=== PATIENT | female | born 1970 | race Caucasian/White ===

== ENCOUNTER 2024-01-20 09:15 | Day surgery (SDC) | payer OTHER ==
[2024-01-17 08:09] VITALS: BMI 25.4
[2024-01-20 10:24] VITALS: TEMP 97
[2024-01-20 10:51] VITALS: RESP 14
[2024-01-20 10:53] VITALS: BP 133/81; PULSE 68
== END 2024-01-20 10:55 | disposition home or self-care (01) ==
LOC: JASU-ENDO 09:15
PROVIDERS: ATTEND Internal Medicine Gastroenterology
PROC: 0DB68ZX Excision of Stomach, Via Natural or Artificial Opening Endoscopic, Diagnostic (ICD-10-PCS; 2024-01-20)
PROC: 0DB78ZX Excision of Stomach, Pylorus, Via Natural or Artificial Opening Endoscopic, Diagnostic (ICD-10-PCS; 2024-01-20)
PROC: 0DJD8ZZ Inspection of Lower Intestinal Tract, Via Natural or Artificial Opening Endoscopic (ICD-10-PCS; principal; 2024-01-20 10:00)
DX: Z12.11 Encounter for screening for malignant neoplasm of colon (principal); K29.50 Unspecified chronic gastritis without bleeding; K31.A0 Gastric intestinal metaplasia, unspecified; Z87.19 Personal history of other diseases of the digestive system
CPT/HCPCS: 81025; 88305-TC; 88342-TC

== ENCOUNTER 2025-07-05 06:29 | Day surgery (SDC) | payer OTHER ==
[2025-06-28 08:39] VITALS: BMI 23.3
[2025-07-05 08:10] VITALS: TEMP 98
[2025-07-05 08:38] VITALS: BP 110/77; PULSE 74; RESP 15
== END 2025-07-05 08:46 | disposition home or self-care (01) ==
LOC: JASU-ENDO 06:29
PROVIDERS: ATTEND Internal Medicine Gastroenterology
PROC: 0DJD8ZZ Inspection of Lower Intestinal Tract, Via Natural or Artificial Opening Endoscopic (ICD-10-PCS; principal; 2025-07-05 07:30)
DX: Z12.11 Encounter for screening for malignant neoplasm of colon (principal); K57.30 Diverticulosis of large intestine without perforation or abscess without bleeding; Z80.0 Family history of malignant neoplasm of digestive organs